=== PATIENT | male | born 1960 | race Caucasian/White ===

== ENCOUNTER 2017-12-13 15:39 | Emergency (ER) | payer MEDICARE, BC, SELFPAY ==
[2017-12-13 17:29] VITALS: BP 212/99; PULSE 81; RESP 20; TEMP 36.6; O2SAT 98; BMI 31.4
--- NOTE | 2017-12-13 17:49 | HMH.EDUTC ---
[facility] [place] Disposition Clinical Impression: Diabetic foot ulcer Qualifiers: Diabetic foot ulcer location: toe Diabetes mellitus type: other specified (including ABENA) Laterality: right Non-pressure ulcer stage: unspecified non-pressure ulcer stage Qualified Code(s): E13.621 - Other specified diabetes mellitus with foot ulcer Disposition: Xfer Short-Term Hosp Condition on Discharge: Fair Instructions: Diabetic Foot Ulcer, DI for Diabetic Foot Ulcer Time of Disposition: 17:57 Medical Decision Making Vital Signs: 12/13/17 17:29 Temperature 97.9 F Temperature Source Temporal Artery Scan Pulse Rate [Brachial] 81 Respiratory Rate 20 Blood Pressure [Right Arm] 212/99 Blood Pressure Mean [Right Arm] 136 Blood Pressure Source [Right Arm] Automatic Cuff Blood Pressure Position [Right Arm] Sitting 02 Sat by Pulse Oximetry 98 Oxygen Delivery Method Room Air - Physician Consults Physician Consulted: dr gibbs Time: 17:55 Reason -: Pt condition, Transfer to another facilty Comment/Response: recommends transfer to complex pt. no primary care local has all care at Additional Consult: magda morgan Time: 17:55 Reason -: Transfer to another facilty Comment/Response: recommends tranfer to [facility] - Luis E Inquiry Pt receiving controlled substance: No [facility] [place] HPI - General Chief complaint: Urgent Treatment Center Stated complaint: diabetic swollen red 2nd toe lf ft big toe r ft Time Seen by Provider: 12/13/17 17:49 Mode of Arrival: Ambulatory HEENT Symptoms (Recalled from RN notes): No Resp Symptoms (Recalled from RN notes): No Skin Symptoms (Recalled from RN notes): Yes MS Symptoms (Recalled from RN notes): No Functional Status (Recalled from RN notes): NA - History of Present Illness Provider Complaint: 57 yr old male presents for diabectic foot ulcers for one month but getting worst. Pt states kidney transplant 7 yrs ago on anti regection meds. has all his care at . - Related Data Home Medications Medication Instructions Recorded Confirmed Carvedilol [Carvedilol 25mg Tab] 25 mg PO DAILY 12/13/17 12/13/17 Furosemide [Furosemide 20mg Tab] 20 mg PO DAILY 12/13/17 12/13/17 Pravastatin Sodium [Pravachol 20mg 20 mg PO DAILY 12/13/17 12/13/17 Tablet] predniSONE [Prednisone 5mg 5 mg PO DAILY 12/13/17 12/13/17 Tab] Allergies Allergy/AdvReac Type Severity Reaction Status Date / Time No Known Allergies Allergy Verified 12/13/17 17:35 - Worker's Comp Is this a Worker's Comp case?: No [facility] History I have reviewed the patient's past medical history: Yes Medical History: Reports:: Diabetes Mellitus Type 2 - *Social History Alcohol Intake: never - Psychiatric History Expresses thoughts of harming self/others: None Suicide Plan Description: No Plan ROS Obtained: Yes All systems reviewed & no additional complaints - Constitutional Constitutional: Reports system reviewed and no additional complaints, except as docu - Eyes Eyes: Reports system reviewed and no additional complaints, except as docu - ENT Ears, Nose, Mouth, and Throat: Reports system reviewed and no additional complaints, except as docu - Cardiovascular Cardiovascular: Reports system reviewed and no additional complaints, except as docu - Respiratory Respiratory: Yes system reviewed and no additional complaints, except as docu - Gastrointestinal Gastrointestingal: Reports: system reviewed and no additional complaints, except as docu - Musculoskeletal Musculoskeletal: Reports system reviewed and no additional complaints, except as docu - Integumentary/Breasts Skin/Breast: Reports system reviewed and no additional complaints, except as docu, Reports as per HPI, Reports skin ulcer, Reports sores - Neurologic Neurologic: Reports system reviewed and no additional complaints, except as docu - Endocrine Endocrine: Reports system reviewed and no additional complaints, except as docu - Hematologic/Lymphatic Henato
--- NOTE | 2017-12-13 17:52 | ED_ITS ---
[facility] [place] Clinical Impression: Diabetic foot ulcer Qualifiers: Diabetic foot ulcer location: toe Diabetes mellitus type: other specified ( including ABENA) Laterality: right Non-pressure ulcer stage: unspecified non- pressure ulcer stage Qualified Code(s): E13.621 - Other specified diabetes mellitus with foot ulcer Disposition: Xfer Short-Term Hosp Condition on Discharge: Fair Instructions: Diabetic Foot Ulcer, DI for Diabetic Foot Ulcer Time of Disposition: 17:57 Medical Decision Making Vital Signs: 12/13/17 17:29 Temperature 97.9 F Temperature Source Temporal Artery Scan Pulse Rate [Brachial] 81 Respiratory Rate 20 Blood Pressure [Right Arm] 212/99 Blood Pressure Mean [Right Arm] 136 Blood Pressure Source [Right Arm] Automatic Cuff Blood Pressure Position [Right Arm] Sitting 02 Sat by Pulse Oximetry 98 Oxygen Delivery Method Room Air - Physician Consults Physician Consulted: dr gibbs Time: 17:55 Reason -: Pt condition, Transfer to another facilty Comment/Response: recommends transfer to complex pt. no primary care local has all care at Additional Consult: magda morgan Time: 17:55 Reason -: Transfer to another facilty Comment/Response: recommends tranfer to [facility] - Luis E Inquiry Pt receiving controlled substance: No [facility] [place] HPI - General Chief complaint: Urgent Treatment Center Stated complaint: diabetic swollen red 2nd toe lf ft big toe r ft Time Seen by Provider: 12/13/17 17:49 Mode of Arrival: Ambulatory HEENT Symptoms (Recalled from RN notes): No Resp Symptoms (Recalled from RN notes): No Skin Symptoms (Recalled from RN notes): Yes MS Symptoms (Recalled from RN notes): No Functional Status (Recalled from RN notes): NA - History of Present Illness Provider Complaint: 57 yr old male presents for diabectic foot ulcers for one month but getting worst. Pt states kidney transplant 7 yrs ago on anti regection meds. has all his care at . - Related Data Home Medications Medication Instructions Recorded Confirmed Carvedilol [Carvedilol 25mg Tab] 25 mg PO DAILY 12/13/17 12/13/17 Furosemide [Furosemide 20mg Tab] 20 mg PO DAILY 12/13/17 12/13/17 Pravastatin Sodium [Pravachol 20mg 20 mg PO DAILY 12/13/17 12/13/17 Tablet] predniSONE [Prednisone 5mg 5 mg PO DAILY 12/13/17 12/13/17 Tab] Allergies Allergy/AdvReac Type Severity Reaction Status Date / Time No Known Allergies Allergy Verified 12/13/17 17:35 - Worker's Comp Is this a Worker's Comp case?: No [facility] History I have reviewed the patient's past medical history: Yes Medical History: Reports:: Diabetes Mellitus Type 2 - *Social History Alcohol Intake: never - Psychiatric History Expresses thoughts of harming self/others: None Suicide Plan Description: No Plan ROS Obtained: Yes All systems reviewed & no additional complaints - Constitutional Constitutional: Reports system reviewed and no additional complaints, except as docu - Eyes Eyes: Reports system reviewed and no additional complaints, except as docu - ENT Ears, Nose, Mouth, and Throat: Reports system reviewed and no additional complaints, except as docu - Cardiovascular Cardiovascular: Reports system reviewed and no additional complaints, except as docu - Respiratory Respiratory: Yes system reviewed and no additional
--- NOTE | 2017-12-13 18:26 | PC.NURSE ---
REPORT CALLED TO NOAM NATARAJAN RN
== END 2017-12-13 18:30 | disposition short-term general hospital (02) ==
PROVIDERS: Emergency Provider Nurse Practitioner Family
DX: E11.621 Type 2 diabetes mellitus with foot ulcer (principal); L97.519 Non-pressure chronic ulcer of other part of right foot with unspecified severity; Z94.0 Kidney transplant status; Z79.899 Other long term (current) drug therapy; Z79.52 Long term (current) use of systemic steroids
CPT/HCPCS: 99202